=== PATIENT | female | born 1935 | race Caucasian/White ===

== ENCOUNTER → 2016-08-28 | Outpatient (CLI) | payer MEDICARE, OTHER ==
[~2016-08-28] MED LIST: BACLOFEN10 MG PO; FLAX SEED OIL1000 MG PO; FLUTICASONE PROP; LISINOPRIL PO; NABUMETONE PO; REQUIP1 MG PO; VIT E PO
--- NOTE | ~2016-08-28 | MY11 ---
[facility] A Service of [facility] RADIOLOGY TEXT RESULTS PATIENT: BHARGAV MONTILLA LOCATION: [facility] : 35 UNIT #: [id number] AGE: [address]: Keren Morse MD SEX: F ORDER DR: [id number] [facility] [address] [place], [place] [address] [id number] O MR#: [id number] #: [id number] NAME: BHAGRAV MONTILLA : 1935 SEX: F STUDY DATE/TIME: 08/28/2016 11:29 UNIT: [facility] ROOM: STUDY DESCRIPTION: MY Mammogram Screening Dig João Attending Physician: Keren Morse M.D. Referring Physician: Keren Morse M.D. Ordering Physician: Keren Morse M.D. Primary Care Physician: Keren Morse M.D. MEDICAL IMAGING REPORT This report is preliminary unless electronic signature is present EXAM Bilateral digital screening mammogram with CAD 08/28/2016 INDICATION 81-year-old female for routine screening. No reported problems. No personal or family history of breast cancer. History of benign nodule removal on the right. TECHNIQUE CC and MLO views of the breast were obtained and reviewed with an FDA-approved CAD device. COMPARISONS 08/25/2015, 08/20/2014, 08/21/2011 FINDINGS Breast parenchyma is heterogeneously dense. This degrades sensitivity of screening mammography. The pattern is unchanged. Scar marker present in the upper, outer right breast. There are benign calcifications present. There is no new dominant nodule or mass in either breast. No new suspicious cluster of microcalcifications. IMPRESSION 1. Benign screening mammogram. 1-year follow-up recommended. Patient's over the age of 40 are entered into a reminder system with target due date for the next mammogram. BIRADS: 2 Benign findings Dictated by... Stefan Shoemaker M.D. [facility] A Service of [facility] RADIOLOGY TEXT RESULTS PATIENT: BHARGAV MONTILLA LOCATION: [facility] : 35 UNIT #: [id number] AGE: [address]: Keren Morse MD SEX: F ORDER DR: THIS IS AN ELECTRONICALLY VERIFIED REPORT Stefan Shoemaker M.D. at 08/28/2016 4:59 PM Kitty TD: 08/28/2016 14:20 JOB #: [id number] MEDICAL IMAGING REPORT Page 1 of 1 COPY
== END | disposition home or self-care (01) ==
LOC: CWCC 10:26
DX: Z12.31 Encounter for screening mammogram for malignant neoplasm of breast (principal)
CPT/HCPCS: G0202